=== PATIENT | male | born 1950 | race Caucasian/White ===

== ENCOUNTER 2021-07-01 10:35 | Emergency (ER) | payer OTHER, BC, SELFPAY ==
[2021-07-01 10:41] VITALS: BP 180/93; PULSE 77; RESP 16; TEMP 36.6; O2SAT 100
--- NOTE | 2021-07-01 12:24 | ED.ABDPAIN ---
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 Prior to arrival to the emergency room. Patient denies other injuries. Pain worse with certain position, better as long as not moving. Related Data Allergies Allergy/AdvReac Type Severity Reaction Status Date / Time No Known Allergies Allergy Verified 07/01/21 12:25 Review of Systems Review of Systems: CONSTITUTIONAL: Denies fever, chills, or sweats. EYES: Denies visual changes, redness, or discharge. ENT: Denies rhinorrhea, congestion, sore throat, or otalgia. CARDIOVASCULAR: Denies chest pain, palpitations, or edema. RESPIRATORY: Denies cough or dyspnea. GASTROINTESTINAL: Denies abdominal pain, nausea, vomiting, or diarrhea. GENITOURINARY: Denies dysuria or hematuria. SKIN: Denies rash or itching. MUSCULOSKELETAL: Denies back pain, joint pain, or myalgia. NEUROLOGIC: Denies headache, numbness, or weakness. PSYCHIATRIC: Denies anxiety or depression. Exam Narrative: General appearance: Well-developed, well-nourished Skin: Normal color Head: Normocephalic, nontraumatic Eyes: Clear conjunctiva ENT: Oropharynx normal, ears normal, nose normal Neck: Supple, nontender Chest and respiratory: Airway patent, no respiratory distress, no accessory muscle use Heart: Regular rate/rhythm Abdomen: Soft, nontender, no organomegaly, quiet bowel sounds, slight tenderness left groin area, no inguinal hernia at this minute Vascular: Normal peripheral pulses, normal capillary refill. Musculoskeletal: Normal range of motion, nontender back Neurologic: Alert and oriented ?3, SECTION CUTTER is normal as tested, no gross motor deficit Course Course Emergency Course: Stable Vital Signs Vital signs: Vital Signs Temperature 36.6 C 07/01/21 10:41 Pulse Rate 77 07/01/21 10:41 Respiratory Rate 16 07/01/21 10:41 Blood Pressure 180/93 H 07/01/21 10:41 Pulse Oximetry 100 07/01/21 10:41 Temperature 36.6 C 07/01/21 10:41 Pulse Rate 77 07/01/21 10:41 Respiratory Rate 16 07/01/21 10:41 Blood Pressure 180/93 H 07/01/21 10:41 Pulse Oximetry 100 07/01/21 10:41 MDM - Abdominal Pain MDM Narrative Medical decision making narrative: Left groin strain/sprain Critical Care Time Critical Care Time Critical Care Time: No Discharge Plan Discharge Clinical Impression: Inguinal muscle strain Qualifiers: Encounter type: initial encounter Qualified Code(s): S39.013A - Strain of muscle, fascia and tendon of pelvis, initial encounter Patient Disposition: Home, Self-Care Condition: Stable Instructions: Antibiotic Form, Groin Strain (ED) Additional Instructions: Return if symptoms are worsening , call your family physician/Dr. Miller for appointment, take Tylenol as as needed for aches and pain, continue home medications. Prescriptions: New tramadol [Ultram] 50 mg tablet 50 mg PO Q6H PRN (Reason: pain) Qty: 20 RF: 0 Follow-up/Referrals: Momo Miller MD [Physician] - 07/04/21 PHYSICIAN NOT ON STAFF,NONSTAFF [Primary Care Provider] - Stand Alone Forms: Work/School Release IP
== END 2021-07-01 12:45 | disposition home or self-care (01) ==
PROVIDERS: Emergency Provider Emergency Medicine
DX: S39.011A Strain of muscle, fascia and tendon of abdomen, initial encounter (principal); X50.9XXA Other and unspecified overexertion or strenuous movements or postures, initial encounter; Y93.E5 Activity, floor mopping and cleaning
CPT/HCPCS: 99283

== ENCOUNTER 2024-11-05 00:33 | Day surgery (SDC) | payer MEDICARE, SELFPAY ==
[2024-10-17 10:53] VITALS: BMI 33.3
--- NOTE | 2024-10-17 11:13 | PC.NURSE ---
Spoke with _PATIENT_ regarding medication _CLOPIDOGREL__. _PATIENT__verbalizes understanding that the last dose is to be taken on _10/28/2024__ and the Endoscopist will instruct them when to restart after the procedure.
--- OUTSIDE RECORDS SUMMARY | 2024-11-05 00:35 | XMS_ITS | Clinical Summary ---
Author Organization [employer] [facility] Address [address] Attn: Vicky PreluAshby [place] [address] Care Team Providers Care Track Laying Supervisor Name Role Phone Unavailable Primary Care Provider Unavailabl e Medications metoprolol succinate (TOPROL XL) 200 mg Extended Release 24 hour tablet Take 1 Tablet (200 mg) by mouth daily. 90 Tablet 3 08/01/2023 11:28 AM CDT 07/11/2023 Active atorvastatin (LIPITOR) 80 mg tablet Take 1 Tablet (80 mg) by mouth daily. 90 Tablet 3 10/10/2023 11:13 AM CDT 07/11/2023 Active clopidogreL (PLAVIX) 75 mg Tablet TAKE 1 TABLET BY MOUTH DAILY 90 Tablet 3 07/12/2023 12:23 PM CDT 07/11/2023 Active losartan (COZAAR) 50 mg tablet TAKE ONE TABLET BY MOUTH DAILY 90 Tablet 3 10/10/2023 11:13 AM CDT 07/11/2023 Active apixaban (ELIQUIS) 5 mg tablet Take 1 Tablet (5 mg) by mouth 2 times daily. 180 Tablet 2 06/22/2023 Active sacubitriL-valsa rtan (Entresto) 49-51 mg Tablet Take 1 Tablet by mouth 2 times daily. 180 Tablet 07/04/2023 Active ticagrelor (BRILINTA) 90 mg Tablet Take 1 Tablet (90 mg) by mouth 2 times daily. 60 Tablet 1 08/01/2023 11:28 AM CDT 07/04/2023 Active clopidogreL (Plavix) 75 mg Tablet Take 1 tablet by mouth once a day 90 Tablet 4 09/04/2023 10:37 AM CDT 09/03/2023 Active spironolactone (ALDACTONE) 50 mg tablet Take 1 Tablet (50 mg) by mouth daily. 90 Tablet 3 10/10/2023 11:13 AM CDT 10/10/2023 Active Immunizations Immunization Administration Dates Next Due (COMIRNATY)(12 YR UP) COVID- 19 VACCINE, MRNA, SPIKE PROTEIN, LNP, PANKAJ(PF) 30 MCG/0.3 ML IM SUSP 12/21/2023 INFLUENZA VACCINE HIGH DOSE QUADRIVALENT 65 YR UP PF IM 01/03/2023,01/04/2022 INFLUENZA VACCINE HIGH DOSE TRIVALENT SPLIT VIRUS, (65 YR UP), 0.5ML (PF), IM 12/21/2023 Social History Tobacco Use Types Packs/Day Years Used Date Smoking Tobacco: Never Assessed Sex and Gender Information Value Date Recorded Sex Assigned at Not on file Legal Sex Male 3:27 PM CDT Gender Identity Not on file Sexual Orientation Not on file Plan of Treatment Health Maintenance Due Date Last Done Comments DTAP/TDAP/TD VACCINES (1 - Tdap) 06/11/1970 COLORECTAL SCREENING 06/11/1996 Colorectal Cancer Screening 06/11/1996 FIT-DNA Q 3 years 06/11/1996 FIT/FOBT Q 1 year 06/11/1996 Flex Sig/CT Colonography Q 5 years 06/11/1996 PNEUMOCOCCAL VACCINE 50+ YEA RS (1 of 1 - PCV) 06/11/2001 ZOSTER VACCINE (1 of 2) 06/11/2001 COVID-19 Vaccine (2 - season) 2024 INFLUENZA VACCINE (#1) 2024 , 01/03/2023, 01/04/2022 RSV VACCINE (60+ or ) (1 - 1-dose 75+ series) 06/11/2026 Insurance RX SERVRX Commercial RX ALLWIN DATA Medicare Part B RX [employer] PL[employer] (INTERNAL) [facility] Plans RX EMDEON Commercial RX OPTUM RX Member Subscriber Plan / Payer (Ef fective for All Dates) Name:Pasha Villareal Sr Misty Relation to Subscriber:Self Name:Pasha Villareal Sr Payer ID:Not on file Group ID:[id number] Type:RX Medicare Part D Address: [address]
--- OUTSIDE RECORDS SUMMARY | 2024-11-05 00:36 | XMS_ITS | Clinical Summary ---
Author Organization [facility] Address [address] [place] [address] Care Team Providers Care Sand Technologist Name Role Phone Otto Ro MD Primary Care Provider [phone] Joesph Israel MD Unavailable Allergies No known active allergies Medications atorvastatin (LIPITOR) 80 mg tabletIndicatio ns:hyperlipidem ia Take 1 tablet (80 mg total) by mouth daily Active aspirin 81 mg enteric coated tablet Take 1 tablet (81 mg total) by mouth daily Active nitroglycerin (NITROSTAT) 0.[address] 1 tablet (0.4 mg total) under the tongue every 5 (five) minutes as needed for chest pain 90 tablet 07/04/2023 Active spironolactone (ALDACTONE) 25 mg tablet Take 1 tablet (25 mg total) by mouth daily 90 tablet 2 07/04/2023 Active losartan (COZAAR) 50 mg tablet Take 1 tablet (50 mg total) by mouth daily Active clopidogreL (PLAVIX) 75 mg tablet Take 1 tablet (75 mg total) by mouth daily Active Active Problems Problem Noted Date Diagnosed Date Coronary artery disease (CAD) excluded CAD (coronary artery disease) 09/12/2023 [facility] with stable angina pectoris 06/26/2023 CAD, multiple vessel 06/23/2023 Surgical History Surgery Date Site/Laterality Comments CORONARY ANGIOPLASTY WITH STENT PLACEMENT Medical History Medical History Date Comments CAD (coronary artery disease) Hypertension Motion sickness GERD (gastroesophageal reflux disease) Family History Medical History Relation Name Comments No Known Problems Father No Known Problems Mother Relation Name Status Comments Father Mother Social History Tobacco Use Types Packs/Day Years Used Date Smoking Tobacco: Never Smokeless Tobacco: Never Tobacco Cessation:Counseling Given: Not Answered [facility] Utilities Answer Date Recorded In the past 12 months has e [employer] & other things you bake, gas, oil, or water [employer] threatened to shut off services in your home? No 06/26/2023 Social Connection and Isolat ion Panel [NHANES] Answer Date Recorded In a typical week, how many times do you talk on the phone with family, friends, or neighbors? More than three times a week 06/26/2023 How often do you get togethe r with friends or relatives? Twice a week 06/26/2023 How often do you attend chur ch or congregation services? Never 06/26/2023 Do you belong to any clubs o r organizations such as episcopal groups, unions, fraternal or athletic groups, or school groups? No 06/26/2023 How often do you attend meet ings of the clubs or organizations you belong to? Never 06/26/2023 Are you , , di vorced, , never , or living with a partner? 06/26/2023 AUDIT-C Answer Date Recorded Q1: How often do you have a drink containing alc ohol? Never 09/25/2023 Average Number of Drinks Not on file 024 Frequency of Binge Drinking Not on file 09/01 Overall Financial Resource Strain (CARDIA) Answe r Date Recorded How hard is it for you to pa y for the very basics like food, housing, medical care, and heating? Not hard at all 06/26/2023 Hunger Vital Sign Answer Date Recorded Within the past 12 months, y ou worried that your food would run out before you got the money to buy more. Never true 06/26/19 24 Within the past 12 months, t he food you bought just didn't last and you didn't have money to get more. Never true 06/26/2023 PRAPARE - Transportation Answer Date Re corded In the past 12 months, has l ack of transportation kept you from medical appointments or from getting medications? No 06/01 In the past 12 months, has l ack of transportation kept you from meetings, work, or from getting things needed for daily living? No 06/26/2023 Housing Stability Vital Sign Answer Chaka e Recorded In the last 12 months, was t here a time when you were not able to pay the mortgage or rent on time? No 06/26/2023 In the last 12 months, how many places have you lived? 1 06/26/2023 In the last 12 months, was t here a time when you did not have a steady place to sleep or slept in a fci (including now)? No 06/26/2023 Personal Safety Answer Date Recorded Have you ever been in or are you currently in a harmful physical or emotional relationship or is someone making you feel afraid or unsafe? Denies 09/25/2023 Sex and Gender Information Value Date Recorded Sex Assigned at Not on file Legal Sex Male 4:04 AM CITY WELLNESS COORDINATOR Gender Identity Not on file Sexual Orientation Not on file Obstetrics History Last Filed Vital Signs Vital Sign Reading Time Taken Comments Blood Pressure 129/76 12/25/2023 1:13 PM CDT Pulse 81 12/25/2023 1:13 PM CDT Temperature 36.9 C (98.4 F) 09/26/2023 3:34 PM CDT Respiratory Rate 14 12/25/2023 1:13 PM CDT Oxygen Saturation 97% 12/25/2023 1:13 PM CDT Inhaled Oxygen Concentration - - Weight 104.8 kg (231 lb) 12/25/2023 1:13 PM CDT Height 180.3 cm (5' 11) 12/25/2023 1:13 PM CDT Body Mass Index 32.22 12/25/2023 1:13 PM CDT Plan of Treatment Health Maintenance Due Date Last Done Comments Colon Cancer Screening-Colonoscopy 1950 Depression Screening 1950 Hepatitis C Screening 1950 DTaP/Tdap/Td Vaccine (1 - Tdap) 06/11/1962 Hepatitis B Screening 06/11/1969 Pneumococcal vaccine 65+ (1 of 2 - PCV) 06/11/1970 Zoster Vaccine (1 of 2) 06/11/2001 Well Visit 65+ 06/11/2016 Fall Risk Assessment 09/25/2024 09/26/2023 Influenza Vaccine (#1) 2024 12/21/2023 Abdominal Aortic Aneurysm (AAA) Screen Completed Medical Devices Implanted Type Area Shuttle Hand Device Identifier Shelf Expiration Date Model / Serial / Lot [employer] Zoran Stent Drug Eluting S Megatron Mr 4.46p85iy [id number] - [id number] Implanted:Qty: 1 on 06/28/2023 by Joesph Israel MD at [facility] Scientific [facility] 12/05/2024 [id number] 450 / / [id number] Medtronic [facility] Surgery 3.0 X 18mm Hilton Early Rx Coronary Stent [id number] - [id number] Implanted:Qty: 1 on 06/28/2023 by Joesph Israel MD at [facility] Medtronic [facility] Vas Surgery 12/26/2025 [id number] / / [id number] [employer] Zoran Synergy Xd Monorail 2.5mm 16mm 144cm Delivery System 1 Access [id number] - [id number] Implanted:Qty: 1 on 09/25/2023 by Joesph Israel MD at [facility] Scientific [facility] 11/12/2024 [id number] / / [id number] Medtronic [facility] Surgery 2.50 X 15mm Hilton Early Rx Coronary Stent [id number] - [id number] Implanted:Qty: 1 on 09/25/2023 by Joesph Israel MD at [facility] Medtronic [facility] Vas Surgery 01/21/2026 [id number] / / [id number] [employer] Angio-Seal Vip 6fr Closere Device [id number] - [id number] Implanted:Qty: 1 on 09/25/2023 by Joesph Israel MD at [facility] [employer] [id number] / / Procedures Procedure Name Priority Date/Time Associated Diagnosis Comments CTA ABDOMEN PELVIS W WO CONTRAST Critical/Life-Th reatening 06/25/2023 6:26 PM CDT from Last 3 Months or Most Recently Relevant to Health Maintenance Results * CTA Abdomen Pelvis (06/25/2023 6:26 PM CDT) Anatomical Region Laterality Modality Body N/A Computed Tomogra phy 06/25/2023 6:45 PM CDT Addenda Addendum by Adarsh Ramos MD on 06/26/2023 8:05 AM CDT Reviewed for IR biopsy purposes Electronically signed by: Adarsh Ramos M.D. Impressions 06/25/2023 6:45 PM CDT 1. 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 2. LARGE HEMATOMA IN THE RIGHT GROIN. 3. SMALL BILATERAL PLEURAL EFFUSIONS. 4. LEFT INGUINAL HERNIA CONTAINING A PORTION OF THE URINARY BLADDER. Electronically signed by: Lawrence Vera M.D. Narrative 06/25/2023 6:45 PM CDT EXAMINATION: CTA ABDOMEN PELVIS DATE: 06/25/2023 6:10 PM HISTORY: Right groin hematoma. COMPARISON: Right groin ultrasound from 06/25/2023. TECHNIQUE: Transaxial computed tomographic images of the abdomen and pelvis were obtained after the administration of 75 mL Optiray 350 intravenously. Multiplanar coronal and sagittal images were reformatted. 3D volumetric analysis with VRT and MIP images were created on a dedicated workstation. FINDINGS: Vascular Findings: There is a fistula from the right common femoral artery to a 3.0 cm collection, consistent with a partially thrombosed pseudoaneurysm (series 5, image 462). There is significant other surrounding hematoma in the right groin. Nonvascular Findings: There are small bilateral pleural effusions. There is a left inguinal hernia containing portion of the urinary bladder. The liver, gallbladder, spleen, pancreas, adrenal glands, and kidneys are normal in appearance. Procedure Note Lawrence Vera MD / Adarsh Ramos MD - 06/25/2023 EXAMINATION: CTA ABDOMEN PELVIS DATE: 06/25/2023 6:10 PM HISTORY: Right groin hematoma. COMPARISON: Right groin ultrasound from 06/25/2023. TECHNIQUE: Transaxial computed tomographic images of the abdomen and pelvis were obtained after the administration of 75 mL Optiray 350 intravenously. Multiplanar coronal and sagittal images were reformatted. 3D volumetric analysis with VRT and MIP images were created on a dedicated workstation. FINDINGS: Vascular Findings: There is a fistula from the right common femoral artery to a 3.0 cm collection, consistent with a partially thrombosed pseudoaneurysm (series 5, image 462). There is significant other surrounding hematoma in the right groin. Nonvascular Findings: There are small bilateral pleural effusions. There is a left inguinal hernia containing portion of the urinary bladder. The liver, gallbladder, spleen, pancreas, adrenal glands, and kidneys are normal in appearance. IMPRESSION: 1. 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 2. LARGE HEMATOMA IN THE RIGHT GROIN. 3. SMALL BILATERAL PLEURAL EFFUSIONS. 4. LEFT INGUINAL HERNIA CONTAINING A PORTION OF THE URINARY BLADDER. Electronically signed by: Lawrence Vera M.D. Joesph Israel MD IMG CT PROCEDURES Edited Result - Final from Last 3 Months or Most Recently Relevant to Health Maintenance Insurance [facility] MEDICARE ADVANTAGE UHC MEDICARE ADVANTAGE Advance Directives For more information, please contact: [phone] * Full Code (Latest Code Status on File) Date Activated Date Inactivated Comments 09/25/2023 12:34 PM 09/26/2023 10:17 PM * Full Code Date Activated Date Inactivated Comments 06/23/2023 12:08 AM 07/04/2023 8:39 PM Care Teams Sand Technologist Relationship Specialty Start Date End Date Otto Ro MD [address] [place] [address] PCP - General Internal Medicine 09/13/23 [place] [id number] [address] Consulting Physician Cardiovascular Disease 09/26/23
--- OUTSIDE RECORDS SUMMARY | 2024-11-05 00:36 | XMS_ITS | Referral Summary ---
Author Organization [facility] Address [address] [place] [address] Care Team Providers Care Barrel Rifler Operator Name Role Phone Otto Ro MD Primary Care Provider [phone] Joesph Israel MD Unavailable Allergies No known [...] disease) 09/12/2023 Coronary artery disease of n [facility] heart with stable angina pectoris 06/26/2023 CAD, multiple vessel 06/23/2023 Social History Tobacco Use Types Packs/Day Years Used Date Smoking Tobacco: Never Smokeless Tobacco: Never Tobacco Cessation:Counseling Given: Not Answered [facility] Utilities Answer Date Recorded In the past 12 months has th e electric, gas, oil, or water company threatened to shut off services in your [...] often do you attend chur ch or episcopalian services? Never 06/26/2023 Do you belong to any clubs o r organizations such as catholic groups, unions, fraternal or athletic groups, or [...] place to sleep or slept in a mcfp (including now)? No 06/26/2023 Personal Safety Answer Date Recorded Have you ever been in or are you currently in a harmful physical or emotional relationship or is someone making you feel afraid or unsafe? 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 Gender Identity Not on file Sexual Orientation Not on file Last Filed Vital Signs Vital Sign Reading [...] 12/25/2023 1:13 PM CDT Plan of Treatment Not on file Medical Devices Implanted Type Area Stemhole Borer And Topper Device Identifier Shelf Expiration Date Model / Serial / Lot Chip Estimate Stent Drug Eluting S Megatron Mr [id number] - [id number] Implanted:Qty: 1 on 06/28/2023 by Joesph Israel MD at [facility] [employer] Scientific Zoran 12/05/2024 [id number] 450 / / [id number] Medtronic Card Vasc Surgery 3.0 X 18mm Hilton [place] Rx Coronary Stent [id number] - [id number] Implanted:Qty: 1 on 06/28/2023 [facility] 12/26/2025 [id number] / / [id number] [employer] Est[employer] Synergy Xd Monorail 2.5mm 16mm 144cm Delivery System 1 Access [id number] - [id number] Implanted:Qty: 1 on 09/25/2023 by Joesph Israel MD at [facility] [employer] Zoran 11/12/2024 [id number] / / [id number] [facility] Surgery 2.50 X 15mm [place] Rx Coronary Stent [id number] - [id number] Implanted:Qty: 1 on 09/25/2023 by Joesph Israel MD at [facility] Surgery 01/21/2026 [id number] / / [id number] [employer] Angio-Seal Vip 6fr Closere Device [id number] - [id number] Implanted:Qty: 1 on 09/25/2023 by Joesph Israel MD at [facility] [employer] [id number] / / Procedures Procedure Name Priority Date/Time [...] Most Recently Relevant to Health Maintenance Insurance [facility] MEDIC[facility] Address: [address] [address] UHC MEDICARE ADVANTAGE [facility] Address: [address] [address] Advance Directives For more information, please contact: [phone] * Full Code (Latest Code Status on File) Date Activated Date Inactivated Comments 09/25/2023 12:34 PM 09/26/2023 10:17 PM * Full Code Date Activated Date Inactivated Comments 06/23/2023 12:08 AM 07/04/2023 8:39 PM Care Teams Barrel Rifler Operator Relationship Specialty Start Date End Date Otto Ro MD [address] [place] [address] PCP - General Internal Medicine 09/13/23 [place] [address] [address] Consulting Physician Cardiovascular Disease 09/26/23
[2024-11-05 10:08] VITALS: BP 140/90; PULSE 99; RESP 18; TEMP 36.7; O2SAT 99; BMI 33.3
--- NOTE | 2024-11-05 10:23 | WPDANESEPPF ---
Anes - Initial Pre Proc Eval Procedure: Operation Date: 11/05/24 11:30 Proposed Procedures p Screening Colonoscopy - Armaan Gallegos MD Date/Time: 11/05/24 10:23 Surgeon: Armaan Gallegos MD Pre Op Diagnosis: Screening Patient Data Age: 74 Gender: M Height: 1.8 m Weight: 108.6 kg Last Vital Signs Temp 36.7 C 11/05/24 10:08 Pulse 99 11/05/24 10:08 Resp 18 11/05/24 10:08 BP 140/90 11/05/24 10:08 Pulse Ox 99 11/05/24 10:08 O2 Del Method Room Air 11/05/24 10:08 Allergies Allergy/AdvReac Type Severity Reaction Status Date / Time No Known Allergies Allergy Verified 11/05/24 10:14 Home Medications ?Medication ?Instructions ?Recorded ?Confirmed ?Type atorvastatin 80 mg tablet 80 mg PO QPM 10/17/24 11/05/24 History clopidogrel 75 mg tablet 75 mg PO .AM 10/17/24 11/05/24 History losartan 50 mg tablet 50 mg PO DAILY 10/17/24 11/05/24 History spironolactone 50 mg tablet 50 mg PO DAILY 10/17/24 11/05/24 History Patient hx anesthesia problems: none Family hx anesthesia problems: none Results Review: All pre-operative results and documents have been reviewed as part of the pre-operative evaluation. [facility] Past Medical History Medical History (Updated 11/05/24 @ 10:24 by Edgar Edmonds DO) Hypertension Hyperlipidemia CAD (coronary artery disease) Atrial fibrillation Surgical History Surgical History (Updated 11/05/24 @ 10:24 by Edgar Edmonds DO) History of coronary artery stent placement Social History Social History Smoking status: Never smoker Alcohol intake: current Drinks per week: 1 Alcohol use details: BEER Substance use: never Living arrangements: with family Spiritual care concerns: No Anes - Eval Final PreProcedure Day of Procedure 11/05/24 10:23 Patient weight: obese Heart: regular rate and rhythm Lungs: clear to auscultation Airway: Mallampati scale class II and special considerations poor dentition Neurological: alert and oriented Last oral intake: >/= 8 hours ASA classification: III Emergent: no Anesthetic plan: proceed Anesthesia type and monitoring: general GIVS and standard monitoring Results Review: All pre-operative results and documents have been reviewed as part of the pre-operative evaluation. Informed Consent: The patient's anesthetic plan and its attendant risks and benefits were discussed with the patient/family/POA. Questions were solicited and answers provided to the satisfaction of the patient/family/POA.
[2024-11-05] MEDS: LACTATED RINGERS 1,000 ML 150 ML IV CONT (10:24)
--- NOTE | 2024-11-05 10:31 | PM.IMHP ---
H&P: HPI History of Present Illness Date/Time: 11/05/24 10:31 Chief Complaint: History of colon polyps Narrative: The patient has a history of colonic polyps, the last colonoscopy was approximately 8 years ago. Review of Systems Review of Systems: All systems reviewed & are unremarkable except as noted in HPI and below [facility] Past Medical History Medical History (Updated 11/05/24 @ 10:32 by Armaan Gallegos MD) Hypertension Hyperlipidemia CAD (coronary artery disease) Atrial fibrillation Surgical History Surgical History (Updated 11/05/24 @ 10:24 by Edgar Edmonds DO) History of coronary artery stent placement Social History Social History Smoking status: Never smoker Alcohol intake: current Drinks per week: 1 Alcohol use details: BEER Substance use: never Living arrangements: with family Spiritual care concerns: No Meds Home Medications and Allergies Home Medications ?Medication ?Instructions ?Recorded ?Confirmed ?Type atorvastatin 80 mg tablet 80 mg PO QPM 10/17/24 11/05/24 History clopidogrel 75 mg tablet 75 mg PO .AM 10/17/24 11/05/24 History losartan 50 mg tablet 50 mg PO DAILY 10/17/24 11/05/24 History spironolactone 50 mg tablet 50 mg PO DAILY 10/17/24 11/05/24 History Allergies Allergy/AdvReac Type Severity Reaction Status Date / Time No Known Allergies Allergy Verified 11/05/24 10:14 Vital Signs Vital Signs - 24 hr 11/05/24 10:08 Temperature 98.0 F Pulse Rate 99 Respiratory Rate 18 Blood Pressure 140/90 Pulse Oximetry 99 Oxygen Delivery Room Air Exam Const: General: cooperative and healthy appearing Resp: Effort & Inspection: normal respiratory effort and able to speak in complete sentences Auscultation: clear to auscultation bilaterally Cardio: Rate: regular rate Rhythm: regular rhythm GI: Inspection: normal to inspection GI Palp: No No hepatosplenomegaly present Auscultation: normal bowel sounds Rectal Exam: deferred Skin: General skin exam: normal color Psych: Appearance: grossly normal Mental Status: mental status grossly normal Assessment and Plan Assessment and plan (1) History of colonic polyps: Code(s): Z86.0100 - Personal history of colon polyps, unspecified Status: Acute Assessment and Plan: The patient is deemed a good candidate for the procedure. Consent signed. Will proceed.
[2024-11-05] MEDS: SIMETHICONE ORAL SUSPENSION 20 MG/0.3 ML 30 ML BOTTLE 0.6 ML IRRIGATION (10:47)
--- NOTE | 2024-11-05 10:55 | S_PTH ---
PATIENT: Pasha Villareal LOC: [facility]#:[id number] AGE/SX: 74/M ROOM: RE11/05/[address]: Armaan Gallegos MD : 1950 BED: DIS: 11/05/2024 SPEC #: [id number] RECD: 11/05/24 11:30 STATUS: LEXUS RETashi #: [id number] NORBERTO: 11/05/24 10:[address]: Armaan Gallegos DEPT: [facility] Surgical RECD BY: Christine Tadeo ENTERED: 11/05/24 11:32 SP TYPE: Surgical OTHR DR: Otto RoMD Tissues: A - Colon Polypectomy B - Colon Polypectomy C - Colon Polypectomy D - Colon Polypectomy Procedures: Hematoxylin and Eosin Stain Gross and Microscopic Level 4
[2024-11-05 11:01] VITALS: BP 114/73; PULSE 89; RESP 22; O2SAT 100
[2024-11-05 11:11] VITALS: BP 140/84; PULSE 83; RESP 20; O2SAT 96
[2024-11-05 11:21] VITALS: BP 148/86; PULSE 73; RESP 20; O2SAT 100
== END 2024-11-05 11:39 | disposition home or self-care (01) ==
PROVIDERS: PCP Internal Medicine; Referring Provider Internal Medicine; Visit Provider Internal Medicine Gastroenterology
PROC: 0DJD8ZZ Inspection of Lower Intestinal Tract, Via Natural or Artificial Opening Endoscopic (ICD-10-PCS; CPT 45378; principal; 2024-11-05 11:30)
DX: Z12.11 Encounter for screening for malignant neoplasm of colon (principal); D12.2 Benign neoplasm of ascending colon; D12.5 Benign neoplasm of sigmoid colon; K63.5 Polyp of colon; K62.1 Rectal polyp; K64.8 Other hemorrhoids; E66.9 Obesity, unspecified; Z68.33 Body mass index [BMI] 33.0-33.9, adult
CPT/HCPCS: 45385; 88305; J2704; J7120